=== PATIENT | male | born 2005 | race Hispanic/Latino ===

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

== ENCOUNTER 2024-05-01 12:03 | Emergency (ER) | payer SELFPAY ==
[~2024-05-01] VITALS: Ht 167.6 cm; Wt 63.5 kg
[~2024-05-01 12:03] MED LIST changes: -DOXY-469 PO; +DOXY100C61 PO
[2024-05-01] MEDS ORDERED: CYCL10TA16 PO (13:30)
[2024-05-01] MEDS ORDERED: IBUP-2077 PO (13:30)
[2024-05-01] MEDS: CYCLOBENZAPRINE HCL 10 MG TABLET PO ONE (13:32)
[2024-05-01] MEDS: ketOROlac 60 MG VIAL (30MG/ML) IM ONE (13:35)
[2024-05-01] MEDS: dexaMETHasone SOD PHOSPHATE 4 MG/ML 1ML VIAL ONE (13:58)
[2024-05-01 14:24] VITALS: BP 140/76; PULSE 68; RESP 14; TEMP 98.9; O2SAT 99
== END 2024-05-01 14:27 | disposition home or self-care (01) ==
LOC: EDH 12:03
DX: S16.1XXA Strain of muscle, fascia and tendon at neck level, initial encounter (principal); Z79.899 Other long term (current) drug therapy; W18.39XA Other fall on same level, initial encounter; Y93.89 Activity, other specified; Y92.89 Other specified places as the place of occurrence of the external cause; Y99.8 Other external cause status
CPT/HCPCS: 99283; 72040; 96372; J1885; J1100